=== PATIENT | male | born 1980 | race Caucasian/White ===

== ENCOUNTER 2017-10-07 11:08 | Emergency (ER) | payer OTHER ==
[~2017-10-07] VITALS: Ht 172.7 cm; Wt 95.2 kg
[~2017-10-07 11:08] MED LIST: ALBU90OI INH; AMOX500 PO; BECL40OI INH; CHLGLU.12S MT; HYDACE5 PO; PENVK500 PO; PRED20 PO; PROM25 PO; Prednisone20 MG PO; RXALBOI INH; TRAM50 PO; Zithromax250 MG PO
[2017-10-07] MEDS ORDERED: Prednisone20 MG PO (13:12)
[2017-10-07] MEDS ORDERED: ALBU90OI INH (13:12)
[2017-10-07] MEDS ORDERED: Flovent 220 Ora12 GM INH (13:12)
== END 2017-10-07 13:18 | disposition home or self-care (01) ==
LOC: ER 11:08
DX: J45.901 Unspecified asthma with (acute) exacerbation (principal); Z87.891 Personal history of nicotine dependence
CPT/HCPCS: 36415; 71046; 94644; 96374; 99284; J2930

== ENCOUNTER 2017-12-17 04:41 | Emergency (ER) | payer OTHER ==
[~2017-12-17] VITALS: Ht 175.3 cm; Wt 97.5 kg
[~2017-12-17 04:41] MED LIST changes: +Flovent 220 Ora12 GM INH
[2017-12-17] MEDS ORDERED: MONT10T PO (06:30)
[2017-12-17] MEDS ORDERED: ALBU90OI6 INH (06:30)
[2017-12-17] MEDS ORDERED: Prednisone20 MG PO (06:30)
== END 2017-12-17 06:52 | disposition home or self-care (01) ==
LOC: ER 04:41
DX: J45.901 Unspecified asthma with (acute) exacerbation (principal); F17.200 Nicotine dependence, unspecified, uncomplicated
CPT/HCPCS: 71045; 94644; 99284

== ENCOUNTER 2021-11-29 06:22 | Day surgery (SDC) | payer OTHER ==
[~2021-11-29] VITALS: Ht 175.3 cm; Wt 96.0 kg
[~2021-11-29 06:22] MED LIST changes: +ALBU90OI6 INH; +Loratadine10 MG PO; +MONT10T PO; +SYMBICORT 160-4.6 GM INH; +ZEPHREX-D30 MG PO
--- NOTE | 2021-11-29 07:43 | NUR ---
11/29/21 0743 Danny Do 0.15MG EPI ADDED TO 30ML'S 0.5% BUPIVACAINE TO ACHIEVE SOLUTION OF 0.5% BUPIVACAINE WITH EPI 1:200,000. 8ML'S INJ INTO OPSITE [place] [address] BENITES.
== END 2021-11-29 08:31 | disposition home or self-care (01) ==
LOC: ORSCSDS 06:22
PROVIDERS: Orthopaedic Surgery
PROC: 0LN70ZZ Release Right Hand Tendon, Open Approach (ICD-10-PCS; principal; 2021-11-29 07:30)
DX: M65.311 Trigger thumb, right thumb (principal); E66.9 Obesity, unspecified; Z68.31 Body mass index [BMI] 31.0-31.9, adult; J45.909 Unspecified asthma, uncomplicated; Z79.899 Other long term (current) drug therapy
CPT/HCPCS: J0171; J0690; J1885; J2704